=== PATIENT | female | born 1960 | race Caucasian/White ===

== ENCOUNTER 2018-11-05 18:54 | Inpatient (IN) | payer BC ==
--- NOTE | 2018-11-05 19:53 | EDPHYS ---
Physician Documentation [facility] Name: Lesley Vogel Age: 58 yrs Sex: Female : 1960 Arrival Date: 11/05/2018 Time: 18:58 Bed 23 Private MD: ED Physician Navid Jean HPI: 11/05 19:49 This 58 yrs old Female presents to ER via Ambulatory with complaints of Chest chad Pressure, Dizziness, Blood Pressure Problem. 19:49 The patient or guardian reports chest pain that is located primarily in the substernal chad area. Onset: 2 day(s) ago. The pain radiates to the left shoulder. Associated signs and symptoms: The patient has no apparent associated signs or symptoms. The chest pain is described as a pressure. Modifying factors: The symptoms are alleviated by nothing. the symptoms are aggravated by nothing. Severity of pain: At its worst the pain was. The patient has not experienced similar symptoms in the past. Historical: - Allergies: 19:38 PENICILLINS; fc 19:38 Erythromycin; fc - Home Meds: 19:38 None [Active]; fc - PMHx: 19:38 Stomach issues with diarrhea; fc - PSHx: 19:38 Cholecystectomy; Hysterectomy; Tonsillectomy; Breast biopsy; fc - Immunization history:: Last tetanus immunization: < 10 years ago. - Social history:: Smoking status: Patient/guardian denies using tobacco, Patient/guardian denies using alcohol, street drugs. - Ebola Screening: : Patient negative for fever greater than or equal to 101.5 degrees Fahrenheit, and additional compatible Ebola Virus Disease symptoms Patient denies exposure to infectious person Patient denies travel to an Ebola-affected area in the 21 days before illness onset. - Family history:: not pertinent. ROS: 19:49 Constitutional: Negative for fever, chills, and weight loss, Eyes: Negative for injury, chad pain, redness, and discharge, ENT: Negative for injury, pain, and discharge, Neck: Negative for injury, pain, and swelling, Respiratory: Negative for shortness of breath, cough, wheezing, and pleuritic chest pain, Abdomen/GI: Negative for abdominal pain, nausea, vomiting, diarrhea, and constipation, Back: Negative for injury and pain, : Negative for injury, bleeding, discharge, and swelling, MS/Extremity: Negative for injury and deformity, Skin: Negative for injury, rash, and discoloration, Psych: Negative for depression, anxiety, suicide ideation, homicidal ideation, and hallucinations, Allergy/Immunology: Negative for hives, rash, and allergies, Endocrine: Negative for neck swelling, polydipsia, polyuria, polyphagia, and marked weight changes, Hematologic/Lymphatic: Negative for swollen nodes, abnormal bleeding, and unusual bruising. 19:49 Cardiovascular: Positive for chest pain, of the chest. 19:49 Neuro: Positive for dizziness. Exam: 19:49 Constitutional: This is a well developed, well nourished patient who is awake, alert, chad and in no acute distress. Head/Face: Normocephalic, atraumatic. Eyes: Pupils equal round and reactive to light, extra-ocular motions intact. Lids and lashes normal. Conjunctiva and sclera are non-icteric and not injected. Cornea within normal limits. Periorbital areas with no swelling, redness, or edema. ENT: Nares patent. No nasal discharge, no septal abnormalities noted. Tympanic membranes are normal and external auditory canals are clear. Oropharynx with no redness, swelling, or masses, exudates, or evidence of obstruction, uvula midline. Mucous membranes moist. Neck: Trachea midline, no thyromegaly or masses palpated, and no cervical lymphadenopathy. Supple, full range of motion without nuchal rigidity, or vertebral point tenderness. No Meningismus. Chest/axilla: Normal chest wall appearance and motion. Nontender with no deformity. No lesions are appreciated. Cardiovascular: Regular rate and rhythm with a normal S1 and S2. No gallops, murmurs, or rubs. Normal PMI, no JVD. No pulse deficits. Respiratory: Lungs have equal breath sounds bilaterally, clear to auscultation and percussion. No rales, rhonchi or wheezes noted. No increased work of breathing, no retractions or nasal flaring. Abdomen/GI: Soft, non-tender, with normal bowel sounds. No distension or tympany. No guarding or rebound. No evidence of tenderness throughout. Back: No spinal tenderness. No costovertebral tenderness. Full range of motion. Skin: Warm, dry with normal turgor. Normal color with no rashes, no lesions, and no evidence of cellulitis. MS/ Extremity: Pulses equal, no cyanosis. Neurovascular intact. Full, normal range of motion. Neuro: Awake and alert, GCS 15, oriented to person, place, time, and situation. Cranial nerves II-XII grossly intact. Motor strength 5/5 in all extremities. Sensory grossly intact. Cerebellar exam normal. Normal gait. Psych: Awake, alert, with orientation to person, place and time. Behavior, mood, and affect are within normal limits. 19:49 Musculoskeletal/extremity: Extremities: all appear grossly normal, with no appreciated pain with palpation, ROM: no acute changes, Circulation is intact in all extremities. Sensation intact. Compartment Syndrome exam of affected extremity: is normal. DVT Exam: No signs of deep vein thrombosis. no pain, no swelling, no tenderness, negative Homans' sign noted on exam, no appreciated bluish discoloration, no erythema, no increased warmth. Vital Signs: 19:15 BP 107 / 65; Pulse 83; Resp 18; Temp 98.1(O); Pulse Ox 100% on R/A; Weight 63.5 kg (R); fc Height 5 ft. 5 in. (165.10 cm) (R); Pain 3/10; 19:30 BP 110 / 65; Pulse 67; Resp 18 S; Pulse Ox 100% on R/A; ca1 20:00 BP 108 / 71; Pulse 84; Resp 19 S; Pulse Ox 100% on R/A; ca1 20:26 BP 113 / 74; Pulse 71; Resp 19 S; Pulse Ox 100% on R/A; ca1 21:20 BP 126 / 83; Pulse 74; Resp 17 S; Pulse Ox 100% on R/A; ca1 22:32 BP 112 / 67; Pulse 63; Resp 17 S; Pulse Ox 100% on R/A; ca1 23:30 BP 111 / 64; Pulse 75; Resp 19; Pulse Ox 100% on R/A; ca1 19:15 Body Mass Index 23.30 (63.50 kg, 165.10 cm) MDM: 19:24 Patient medically screened. [facility] 19:51 Data reviewed: vital signs, nurses notes, lab test result(s), EKG, radiologic studies, chad plain films. 11/05 19:49 Order name: Basic Metabolic Panel; Complete Time: 20:51 [facility] 11/05 19:49 Order name: CBC with Diff; Complete Time: 20:51 [facility] 11/05 19:49 Order name: LFT's; Complete Time: 20:51 [facility] 11/05 19:49 Order name: Magnesium; Complete Time: 20:51 11/05 19:49 Order name: NT PRO-BNP; Complete Time: 20:51 11/05 19:49 Order name: PT-INR; Complete Time: 20:51 11/05 19:49 Order name: Troponin (emerg Dept Use Only); Complete Time: 20:51 [facility] 11/05 19:49 Order name: Lipase; Complete Time: 20:51 [facility] 11/05 20:55 Order name: Lipid Profile; Complete Time: 21:47 [facility] 11/05 21:21 Order name: Urine Dipstick--Ancillary (enter results); Complete Time: 22:26 ar5 11/05 22:28 Order name: Urine Culture [facility] 11/05 22:42 Order name: Comprehensive Metabolic Panel [facility] 11/05 22:43 Order name: CBC with Automated Diff [facility] 11/05 22:43 Order name: CBC with Automated Diff [facility] 11/05 19:49 Order name: XRAY Chest (1 view); Complete Time: 20:51 [facility] 11/05 20:52 Order name: CT Abd/Pelvis - W/Contrast [facility] 11/05 22:29 Order name: US Abdomen Limited [facility] 11/05 22:43 Order name: Comprehensive Metabolic Panel [facility] 11/05 22:43 Order name: Lipase [facility] 11/05 22:43 Order name: Lipase [facility] 11/05 22:43 Order name: Lipid Profile [facility] 11/05 22:43 Order name: Lipid Profile [facility] 11/05 19:49 Order name: EKG; Complete Time: 19:49 [facility] 11/05 19:49 Order name: Cardiac monitoring; Complete Time: 19:50 chad 11/05 19:49 Order name: EKG - Nurse/Tech; Complete Time: 19:50 11/05 19:49 Order name: IV Saline Lock; Complete Time: 20:26 11/05 19:49 Order name: Labs collected and sent; Complete Time: 20:26 11/05 19:49 Order name: O2 Per Protocol; Complete Time: 19:51 11/05 19:49 Order name: O2 Sat Monitoring; Complete Time: 19:51 11/05 19:49 Order name: Urine Dipstick-Ancillary (obtain specimen); Complete Time: 20:22 chad 11/05 22:43 Order name: CONS Pharmacy Consult [facility] 11/05 22:43 Order name: VICENTE EDSD Administered Medications: 20:00 Drug: NS 0.9% 1000 ml Route: IV; Rate: 125 ml/hr; Site: left antecubital; ca1 20:16 Follow up: IV Status: Infusion continued upon admission ca1 23:33 Follow up: IV Status: Infusion continued upon admission ca1 20:00 Drug: Aspirin 162 mg Route: PO; ca1 23:14 Follow up: Response: No adverse reaction ca1 20:02 Drug: Lovenox 1 mg/kg Route: Sub-Q; Site: right lower abdomen; ca1 23:33 Follow up: Response: No adverse reaction ca1 20:02 Drug: Pepcid 20 mg Route: IVP; Site: left antecubital; ca1 23:15 Follow up: Response: No adverse reaction ca1 20:54 Drug: NS 0.9% 1000 ml Route: IV; Rate: 1 bolus; Site: left antecubital; ca1 23:32 Follow up: IV Status: Infusion continued upon admission ca1 23:55 Follow up: IV Status: Completed infusion ca1 21:15 Drug: NS 0.9% 1000 ml Route: IV; Rate: 1 bolus; Site: left antecubital; ca1 23:32 Follow up: IV Status: Infusion continued upon admission ca1 23:54 Follow up: IV Status: Completed infusion ca1 22:40 Drug: levofloxacin 500 mg Volume: 100 ml; Route: IVPB; Infused Over: 60 mins; Site: ca1 left antecubital; 23:32 Follow up: IV Status: Infusion continued upon admission ca1 23:53 Follow up: Response: No adverse reaction; IV Status: Completed infusion ca1 23:00 Drug: Lopressor 25 mg Route: PO; ca1 23:33 Follow up: Response: No adverse reaction ca1 Disposition: 11/05/18 19:52 Hospitalization ordered by Ignacio Curtis for Observation. Preliminary diagnosis are Chest pain, unspecified, Dizziness and giddiness, Functional dyspepsia - hx cholecystectomy, elevated lipase, Urinary tract infection, site not specified. - Bed requested for Telemetry/MedSurg (observation). - Status is Observation. ca1 - Condition is Stable. - Problem is new. - Symptoms have improved. UTI on Admission? Yes Signatures: Dispatcher [employer] EDMS Teresa Nguyen RN RN mw Anderson, Corey, MD MD cha Chretien, Felicia, RN RN Alina Giles RN RN ca1 Corrections: (The following items were deleted from the chart) 19:52 19:51 Data reviewed: vital signs, nurses notes, lab test result(s), EKG, radiologic [facility] studies, CT scan, plain films, [facility] 20: 19:52 Hospitalization Ordered by Ignacio Curtis MD for Observation. Preliminary diagnosis is Chest pain, unspecified; Dizziness and giddiness. Bed requested for Telemetry/MedSurg (observation). Status is Observation. Condition is Stable. Problem is new. Symptoms have improved. UTI on Admission? No. chad 20:55 20:27 11/05/2018 19:52 Hospitalization Ordered by Ignacio Curtis MD for Observation. chad Preliminary diagnosis is Chest pain, unspecified; Dizziness and giddiness. Bed requested for Telemetry/MedSurg (observation). Status is Observation. Condition is Stable. Problem is new. Symptoms have improved. UTI on Admission? No. 22:34 20:55 11/05/2018 19:52 Hospitalization Ordered by Ignacio Curtis MD for Observation. chad Preliminary diagnosis is Chest pain, unspecified; Dizziness and giddiness; Functional dyspepsia - hx cholecystectomy, elevated lipase. Bed requested for Telemetry/MedSurg (observation). Status is Observation. Condition is Stable. Problem is new. Symptoms have improved. UTI on Admission? No. chad 23:55 22:34 11/05/2018 19:52 Hospitalization Ordered by Ignacio Curtis MD for Observation. ca1 Preliminary diagnosis is Chest pain, unspecified; Dizziness and giddiness; Functional dyspepsia - hx cholecystectomy, elevated lipase; Urinary tract infection, site not specified. Bed requested for Telemetry/MedSurg (observation). Status is Observation. Condition is Stable. Problem is new. Symptoms have improved. UTI on Admission? Yes. chad
--- NOTE | 2018-11-05 19:53 | ER ---
Nurse's Notes [facility] Name: Lesley Vogel Age: 58 yrs Sex: Female : 1960 Arrival Date: 11/05/2018 Time: 18:58 Bed 23 Private MD: Diagnosis: Chest pain, unspecified;Dizziness and giddiness;Functional dyspepsia-hx cholecystectomy, elevated lipase;Urinary tract infection, site not specified Presentation: 11/05 19:15 Presenting complaint: Patient states: that for the past 2 days she has had episodes of fc dizziness and nausea but no vomiting. Today she had 2 episodes but she also had chest pressure with the dizziness. States that all the episodes were after exercise or walking. Transition of care: patient was not received from another setting of care. Onset of symptoms was November 03, 2018. Risk Assessment: Do you want to hurt yourself or someone else? Patient reports no desire to harm self or others. Initial Sepsis Screen: Does the patient meet any 2 criteria? No. Patient's initial sepsis screen is negative. Does the patient have a suspected source of infection? No. Patient's initial sepsis screen is negative. Care prior to arrival: None. 19:15 Method Of Arrival: Ambulatory 19:15 Acuity: ERROL 3 fc Historical: - Allergies: 19:38 PENICILLINS; fc 19:38 Erythromycin; fc - Home Meds: 19:38 None [Active]; fc - PMHx: 19:38 Stomach issues with diarrhea; fc - PSHx: 19:38 Cholecystectomy; Hysterectomy; Tonsillectomy; Breast biopsy; fc - Immunization history:: Last tetanus immunization: < 10 years ago. - Social history:: Smoking status: Patient/guardian denies using tobacco, Patient/guardian denies using alcohol, street drugs. - Ebola Screening: : Patient negative for fever greater than or equal to 101.5 degrees Fahrenheit, and additional compatible Ebola Virus Disease symptoms Patient denies exposure to infectious person Patient denies travel to an Ebola-affected area in the 21 days before illness onset. - Family history:: not pertinent. Screenin:15 Abuse screen: Denies threats or abuse. Nutritional screening: No deficits noted. fc Tuberculosis screening: No symptoms or risk factors identified. Fall Risk None identified. Assessment: 19:35 General: Appears in no apparent distress. comfortable, Behavior is calm, cooperative, ca1 appropriate for age, Reports dizzy spells for about a week now. Chest tightness started at about 1600. Pain: Complains of pain in anterior aspect of left upper chest Pain radiates to left clavicle Pain currently is 3 out of 10 on a pain scale. at worst was 6 out of 10 on a pain scale. Quality of pain is described as pressure, Pain began 4 hours ago. Is continuous. Neuro: Level of Consciousness is awake, alert, obeys commands, Oriented to person, place, time, situation. Neuro: Reports dizziness, since a week ago. Cardiovascular: Heart tones S1 S2 present Capillary refill < 3 seconds Patient's skin is warm and dry. Respiratory: Airway is patent Respiratory effort is even, unlabored, Respiratory pattern is regular, symmetrical, Breath sounds are clear bilaterally. GI: Abdomen is flat, non-distended, Bowel sounds present X 4 quads. Abd is soft and non tender X 4 quads. Reports nausea. : No deficits noted. No signs and/or symptoms were reported regarding the genitourinary system. EENT: No deficits noted. No signs and/or symptoms were reported regarding the EENT system. Derm: Skin is intact, is healthy with good turgor, Skin is pink, warm \T\ dry. Musculoskeletal: Circulation, motion, and sensation intact. Capillary refill < 3 seconds. 20:30 Reassessment: Patient appears in no apparent distress at this time. Patient and/or ca1 family updated on plan of care and expected duration. Pain level reassessed. Patient is alert, oriented x 3, equal unlabored respirations, skin warm/dry/pink. 21:20 Reassessment: Patient appears in no apparent distress at this time. Patient and/or ca1 family updated on plan of care and expected duration. Pain level reassessed. Patient is alert, oriented x 3, equal unlabored respirations, skin warm/dry/pink. 22:29 Reassessment: Patient appears in no apparent distress at this time. Patient and/or ca1 family updated on plan of care and expected duration. Pain level reassessed. Patient is alert, oriented x 3, equal unlabored respirations, skin warm/dry/pink. Awaiting admitting orders. 23:30 Reassessment: Patient appears in no apparent distress at this time. Patient is alert, ca1 oriented x 3, equal unlabored respirations, skin warm/dry/pink. Instructed on NPO. Vital Signs: 19:15 BP 107 / 65; Pulse 83; Resp 18; Temp 98.1(O); Pulse Ox 100% on R/A; Weight 63.5 kg (R); fc Height 5 ft. 5 in. (165.10 cm) (R); Pain 3/10; 19:30 BP 110 / 65; Pulse 67; Resp 18 S; Pulse Ox 100% on R/A; ca1 20:00 BP 108 / 71; Pulse 84; Resp 19 S; Pulse Ox 100% on R/A; ca1 20:26 BP 113 / 74; Pulse 71; Resp 19 S; Pulse Ox 100% on R/A; ca1 21:20 BP 126 / 83; Pulse 74; Resp 17 S; Pulse Ox 100% on R/A; ca1 22:32 BP 112 / 67; Pulse 63; Resp 17 S; Pulse Ox 100% on R/A; ca1 23:30 BP 111 / 64; Pulse 75; Resp 19; Pulse Ox 100% on R/A; ca1 19:15 Body Mass Index 23.30 (63.50 kg, 165.10 cm) fc ED Course: 18:58 Patient arrived in ED. mr 19:15 Arm band placed on Patient placed in an exam room, on a stretcher. fc 19:15 Patient has correct armband on for positive identification. Placed in gown. Bed in low fc position. Call light in reach. site monitor on. Pulse ox on. NIBP on. 19:24 Navid Jean MD is Attending Physician. [facility] 19:25 Alina Giles RN is Primary Nurse. ca1 19:35 Patient maintains SpO2 saturation greater than 95% on room air. ca1 19:36 Triage completed. fc 19:52 Ignacio Curtis MD is Hospitalizing Provider. [facility] 19:58 Inserted saline lock: 20 gauge in left antecubital area, using aseptic technique. Blood ca1 collected. 20:21 XRAY Chest (1 view) In Process Unspecified. EDMS 20:24 No provider procedures requiring assistance completed. Patient admitted, IV remains in ca1 place. 21:[address] via wheelchair. nj 21:51 CT completed. Patient tolerated procedure well. Patient moved back from CT. nj 22:03 CT Abd/Pelvis - W/Contrast In Process Unspecified. EDMS Administered Medications: 20:00 Drug: NS 0.9% 1000 ml Route: IV; Rate: 125 ml/hr; Site: left antecubital; ca1 20:16 Follow up: IV Status: Infusion continued upon admission ca1 23:33 Follow up: IV Status: Infusion continued upon admission ca1 20:00 Drug: Aspirin 162 mg Route: PO; ca1 23:14 Follow up: Response: No adverse reaction ca1 20:02 Drug: Lovenox 1 mg/kg Route: Sub-Q; Site: right lower abdomen; ca1 23:33 Follow up: Response: No adverse reaction ca1 20:02 Drug: Pepcid 20 mg Route: IVP; Site: left antecubital; ca1 23:15 Follow up: Response: No adverse reaction ca1 20:54 Drug: NS 0.9% 1000 ml Route: IV; Rate: 1 bolus; Site: left antecubital; ca1 23:32 Follow up: IV Status: Infusion continued upon admission ca1 23:55 Follow up: IV Status: Completed infusion ca1 21:15 Drug: NS 0.9% 1000 ml Route: IV; Rate: 1 bolus; Site: left antecubital; ca1 23:32 Follow up: IV Status: Infusion continued upon admission ca1 23:54 Follow up: IV Status: Completed infusion ca1 22:40 Drug: levofloxacin 500 mg Volume: 100 ml; Route: IVPB; Infused Over: 60 mins; Site: ca1 left antecubital; 23:32 Follow up: IV Status: Infusion continued upon admission ca1 23:53 Follow up: Response: No adverse reaction; IV Status: Completed infusion ca1 23:00 Drug: Lopressor 25 mg Route: PO; ca1 23:33 Follow up: Response: No adverse reaction ca1 Outcome: 19:52 Decision to Hospitalize by Provider. chad 23:29 Admitted to Med/surg accompanied by tech, family with patient, via wheelchair, room ca1 214, with chart, Other with IVF Report called to Teresita Roberts RN 23:29 Condition: stable 23:29 Instructed on the need for admit. 23:55 Patient left the ED. ca1 Signatures: Dispatcher [employer] EDMS Navid Jean MD MD cha Rivera, Johanna Peck RN RN fc Jordan, Nathan nj Acob, Cheryl, RN RN ca1 Corrections: (The following items were deleted from the chart) 23:31 23:30 Reassessment: Patient appears in no apparent distress at this time. Patient is ca1 alert, oriented x 3, equal unlabored respirations, skin warm/dry/pink. ca1
[2018-11-05 20:13] LABS: Protime INR 1.05
[2018-11-05 20:17] LABS: Absolute Lymphocytes (CBC) 2.8 K/uL (0.7-4.9); Absolute Monocytes 0.9 K/uL (0.1-1.3); Absolute Neutrophil 7.9 K/uL (1.8-8.0); Basophils % 0.4 % (0-1.3); Eosinophils % 1.1 % (0-4.4); Hematocrit 36.3 % (36.0-45.0); Lymphocytes % 23.8 % (15.3-44.8); MPV 8.4 fL (7.6-11.3); Monocytes % 7.7 % (3.3-12.3); RBC Red Blood Cell Count 4.01 M/uL (3.86-4.86)
[2018-11-05] MEDS ORDERED: ASPIRIN EC 81 MG TAB PO ONE (20:18)
[2018-11-05] MEDS ORDERED: NA CHLORIDE 0.9% 1,000 ML ONE ×3 (20:18→21:15)
[2018-11-05] MEDS ORDERED: METOPROLOL TAR 25 MG TAB ONE (20:18)
[2018-11-05] MEDS ORDERED: FAMOTIDINE 20 MG/2 ML VIAL IV ONE (20:18)
[2018-11-05] MEDS ORDERED: ENOXAPARIN 60 MG/0.6 ML SQ ONE (20:19)
[2018-11-05 20:35] LABS: ALT/SGPT 23 U/L (12-78); AST/SGOT 19 U/L (15-37); Albumin 3.8 g/dL (3.4-5.0); Alkaline Phosphatase 64 U/L (45-117); BUN Blood Urea Nitrogen 24 mg/dL (7-18); Bicarbonate 28 mmol/L (21-32); Bilirubin Direct 0.2 mg/dL (0-0.2); Bilirubin Total 0.6 mg/dL (0.2-1.0); Glucose Level 91 mg/dL (74-106); Lipase 1359 U/L (73-393); Magnesium 2.1 mg/dL (1.8-2.4); NT PRO-BNP 68 pg/mL (<125); Protein, Total 6.9 g/dL (6.4-8.2); Sodium Level 143 mmol/L (136-145); Troponin (Emerg Dept Use Only) < 0.02 ng/mL (0.0-0.045)
--- NOTE | 2018-11-05 20:40 | RAD REPORT ---
EXAM DESCRIPTION: Rakesh Single View11/05/2018 8:21 pm CLINICAL HISTORY: Chest pain COMPARISON: none FINDINGS: The lungs appear clear of acute infiltrate. The heart is normal size IMPRESSION: No acute abnormalities displayed
[2018-11-05 22:12] LABS: Urine Blood TRACE (NEG); Urine Glucose NEGATIVE (NEG); Urine Protein NEGATIVE (NEG); Urine pH 5.5 (5.0-7.0)
[2018-11-05] MEDS ORDERED: ONDANSETRON 4 MG/2 ML VIAL IV PRN (22:39)
[2018-11-05] MEDS ORDERED: Levofloxacin500mg IV 500 MG/100 ML BAG IV ONE (22:47)
[2018-11-05] MEDS: NA CHLORIDE 0.9% 1,000 ML IV SCH (23:00)
[2018-11-06] MEDS: MORPHINE 2 MG/ML SYR IV PRN ×2 (00:42→16:34)
[2018-11-06 06:05] LABS: Absolute Monocytes 0.8 K/uL (0.1-1.3); Absolute Neutrophil 3.1 K/uL (1.8-8.0); Basophils % 0.6 % (0-1.3); Eosinophils % 0.9 % (0-4.4); Hematocrit 32.4 % (36.0-45.0); Lymphocytes % 33.5 % (15.3-44.8); MPV 8.7 fL (7.6-11.3); Monocytes % 13.2 % (3.3-12.3); RBC Red Blood Cell Count 3.59 M/uL (3.86-4.86)
[2018-11-06 06:42] LABS: Bilirubin Total 1.2 mg/dL (0.2-1.0); Potassium 4.3 mmol/L (3.5-5.1); Protein, Total 5.5 g/dL (6.4-8.2)
[2018-11-06] MEDS: NA CHLORIDE 0.9% 1,000 ML IV SCH ×4 (07:32→23:00)
--- NOTE | 2018-11-06 09:37 | RAD REPORT ---
EXAM DESCRIPTION: US - Abdomen Exam Limited - 11/05/2018 10:51 pm CLINICAL HISTORY: Abdominal pain. COMPARISON: November 05 2018 cat scan FINDINGS: Cholecystectomy. The biliary tree is normal caliber. The common bile duct measures 5 millimeters IMPRESSION: Cholecystectomy. Otherwise unremarkable exam
--- NOTE | 2018-11-06 10:29 | EKG ---
Test Date: 2018-11-05 Test Time: 19:41:38 [employer] Instructor: HELEN MEASUREMENT RESULTS: Intervals: Rate: 81 LA: 128 QRSD: 78 QT: 364 QTc: 422 [place]: P: 80 LA: 128 QRS: 88 T: 60 INTERPRETIVE STATEMENTS: Normal sinus rhythm with sinus arrhythmia Normal ECG Compared to ECG 10/31/2003 12:30:00 Right-axis deviation no longer present Electronically Signed On 11-06-18 10:28:13 CDT by Betito Kraus
--- NOTE | 2018-11-06 12:19 | P.PN ---
Subjective Date of Service: 11/06/18 Subjective: No C/O voiced, Improving Patient seen and examined at bedside. No family at bedside. Chart reviewed and case discussed with nursing staff. Patient admitted for acute pancreatitis. Abdominal ultrasound and CT still pending. Patient reports resolved chest and abdominal pain at this time. She denies any nausea or vomiting. Review of Systems 10-point ROS is otherwise unremarkable Physical Examination - Vital Signs Temperature: 98.2 F Blood Pressure: 110/57 Pulse: 53 Respirations: 18 Pulse Ox (%): 99 - Physical Exam General: Alert, In no apparent distress, Oriented x3 HEENT: Atraumatic, PERRLA, EOMI Neck: Supple, JVD not distended Respiratory: Clear to auscultation bilaterally, Normal air movement Cardiovascular: Regular rate/rhythm, Normal S1 S2 Gastrointestinal: Normal bowel sounds, Tenderness (Right upper quadrant) Musculoskeletal: No tenderness Integumentary: No rashes Neurological: Normal speech, Normal tone, Normal affect Lymphatics: No axilla or inguinal lymphadenopathy - Studies Laboratory Data (last 24 hrs) 11/05/18 19:58: Triglycerides 135, Cholesterol 196, HDL Cholesterol 69 H, Cholesterol/HDL Ratio 2.84 11/05/18 19:58: PT 12.4, INR 1.05 11/05/18 19:58: WBC 11.8 H, Hgb 12.3, Hct 36.3, Plt Count 230 11/05/18 19:58: Sodium 143, Potassium 4.0, BUN 24 H, Creatinine 0.95, Glucose 91 , Magnesium 2.1, Total Bilirubin 0.6, AST 19, ALT 23, Alkaline Phosphatase 64, Lipase 1359 H Assessment And Plan - Current Problems (Diagnosis) (1) Acute pancreatitis Current Visit: Yes Status: Acute Plan: - Continue to keep NPO - pain control - IV fluids - follow up abdominal CT - abdominal ultrasound without common bile duct dilatation Qualifiers: Acute pancreatitis complication: unspecified (2) Elevated LFTs Current Visit: Yes Status: Acute Plan: Abdominal ultrasound without common bile duct dilatation. We will continue to monitor If continues to remain elevated, will need transfer to [place] for MRCP (3) History of cholecystectomy Current Visit: Yes Status: Acute (4) Leukocytosis Current Visit: Yes Status: Acute Qualifiers: Leukocytosis type: unspecified Qualified Code(s): D72.829 - Elevated white blood cell count, unspecified - Plan Continue to monitor on the floor. Follow up on abdominal CT. May need transfer to [place] if no improvement in LFTs for MRCP.
--- NOTE | 2018-11-06 13:55 | P.HP ---
Certification for Inpatient Patient admitted to: Inpatient With expected LOS: >2 Midnights Patient will require the following post-hospital care: None Practitioner: I am a practitioner with admitting privileges, knowledge of patient current condition, hospital course, and medical plan of care. Services: Services provided to patient in accordance with Admission requirements found in Title 42 Section 412.3 of the Code of Federal Regulations Patient History Date of Service: 11/05/18 Reason for admission: Acute pancreatitis History of Present Illness: Patient is a 58-year-old female who came into the hospital because she was having abdominal pain. This was mainly in the right upper quadrant, and it radiated to the left side. She has had a cholecystectomy in the past but did well after the procedure. She never had any interventions such as an ERCP prior to the procedure, because it was 17 years ago. She has had a colonoscopy in the past which did not reveal any abnormalities. In the emergency room her lipase came back elevated. She has been seeing her primary care provider Dr. Manjeet Morales a couple weeks ago because of persistent diarrhea. They tried to change her diet to see if this would help. She has also had a 45 lb weight loss just from changing her diet. She will be admitted to the hospital for further evaluation. CT of the abdomen and pelvis did not reveal any significant abnormality. She has also had an abdominal ultrasound which was negative. Allergies erythromycin base Allergy (Verified 11/06/18 00:08) Hives/Rash Penicillins Allergy (Verified 11/06/18 00:08) Hives/Rash Home Medications: NK [No Home Meds] 11/06/18 - Past Medical/Surgical History Has patient received pneumonia vaccine in the past: No Diabetic: No Past Medical History: Patient denies medical history -: hysterectomy -: tonsillectomy -: breast biopsy -: Laparoscopic cholecystectomy - Family History Father Medical History: Heart disease, Other (see notes) Notes: pacemaker/ defib - Social History Smoking Status: Never smoker Alcohol use: No CD- Drugs: No Caffeine use: Yes Place of Residence: Home Review of Systems 10-point ROS is otherwise unremarkable Physical Examination - Vital Signs Temperature: 98.2 F Blood Pressure: 110/57 Pulse: 53 Respirations: 18 Pulse Ox (%): 99 - Physical Exam General: Alert, In no apparent distress, Oriented x3 HEENT: Atraumatic, PERRLA, Mucous membr. moist/pink, EOMI, Sclerae nonicteric Neck: Supple, 2+ carotid pulse no bruit, No LAD, Without JVD or thyroid abnormality Respiratory: Clear to auscultation bilaterally, Normal air movement Cardiovascular: Regular rate/rhythm, Normal S1 S2, No murmurs Gastrointestinal: Normal bowel sounds, Soft and benign, Non-distended, Tenderness (right upper quadrant) Musculoskeletal: No clubbing, No swelling, No tenderness Integumentary: No rashes Neurological: Normal gait, Normal speech, Normal strength at 5/5 x4 extr, Normal tone, Sensation intact, Cranial nerves 3-12 intact, Normal affect Lymphatics: No axilla or inguinal lymphadenopathy - Studies Laboratory Data (last 24 hrs) 11/05/18 19:58: Triglycerides 135, Cholesterol 196, HDL Cholesterol 69 H, Cholesterol/HDL Ratio 2.84 11/05/18 19:58: PT 12.4, INR 1.05 11/05/18 19:58: WBC 11.8 H, Hgb 12.3, Hct 36.3, Plt Count 230 11/05/18 19:58: Sodium 143, Potassium 4.0, BUN 24 H, Creatinine 0.95, Glucose 91 , Magnesium 2.1, Total Bilirubin 0.6, AST 19, ALT 23, Alkaline Phosphatase 64, Lipase 1359 H Assessment & Plan - Problems (Diagnosis) (1) Diarrhea Current Visit: Yes Status: Acute (2) Weight loss Current Visit: Yes Status: Acute (3) Acute pancreatitis Current Visit: Yes Status: Acute Qualifiers: Acute pancreatitis complication: unspecified (4) Elevated LFTs Current Visit: Yes Status: Acute (5) History of cholecystectomy Current Visit: Yes Status: Acute (6) Leukocytosis Current Visit: Yes Status: Acute Qualifiers: Leukocytosis type: unspecified Qualified Code(s): D72.829 - Elevated white blood cell count, unspecified - Plan Plan: 1. IV fluids and IV antibiotics 2. Stool studies 3. GI consultation outpt 4. Pain control 5. Outpatient colonoscopy 6. MRCP 7. GI and DVT prophylaxis Discharge Plan: Home Plan to discharge in: Greater than 2 days - Advance Directives Does patient have a Living Will: Yes Does patient have a Durable POA for Healthcare: Yes - Code Status/Comfort Care Code Status Assessed: Yes Code Status: Full Code Critical Care: No Time Spent Managing PTS Care (In Minutes): 45
[2018-11-06] MEDS: ACETAMINOPHEN 500 MG TAB PO PRN (21:53)
[2018-11-07 05:03] LABS: Absolute Lymphocytes (CBC) 1.6 K/uL (0.7-4.9); Absolute Monocytes 0.5 K/uL (0.1-1.3); Absolute Neutrophil 4.9 K/uL (1.8-8.0); Basophils % 0.6 % (0-1.3); Eosinophils % 0.5 % (0-4.4); Hematocrit 34.7 % (36.0-45.0); Lymphocytes % 23.1 % (15.3-44.8); MPV 8.7 fL (7.6-11.3); Monocytes % 6.8 % (3.3-12.3); RBC Red Blood Cell Count 3.86 M/uL (3.86-4.86)
[2018-11-07 05:24] LABS: AST/SGOT 291 U/L (15-37); Albumin 3.1 g/dL (3.4-5.0); Alkaline Phosphatase 131 U/L (45-117); Amylase Level 75 U/L (25-115); BUN Blood Urea Nitrogen 17 mg/dL (7-18); Bicarbonate 21 mmol/L (21-32); Bilirubin Direct 0.3 mg/dL (0-0.2); Glucose Level 62 mg/dL (74-106); Lipase 285 U/L (73-393); Potassium 4.6 mmol/L (3.5-5.1); Protein, Total 5.6 g/dL (6.4-8.2); Sodium Level 143 mmol/L (136-145)
[2018-11-07 05:26] LABS: ALT/SGPT 429 U/L (12-78)
[2018-11-07] MEDS: NA CHLORIDE 0.9% 1,000 ML IV SCH (06:00)
[2018-11-07] MEDS ORDERED: D50W 25 GM/50 ML SYRINGE IV PRN (08:51)
[2018-11-07] MEDS: ACETAMINOPHEN 500 MG TAB PO PRN (11:56)
[2018-11-07] MEDS ORDERED: D5 0.45 NS 1,000 ML IV SCH (12:00)
--- NOTE | 2018-11-07 14:13 | P.DS ---
Admission Date: 11/05/18 Discharge Date: 11/07/18 Disposition: TRANSFER TO [facility] Reason for Admission: Acute pancreatitis - Problems (1) Acute pancreatitis Current Visit: Yes Status: Acute Qualifiers: Acute pancreatitis complication: unspecified (2) Elevated LFTs Current Visit: Yes Status: Acute (3) History of cholecystectomy Current Visit: Yes Status: Acute (4) Leukocytosis Current Visit: Yes Status: Acute Qualifiers: Leukocytosis type: unspecified Qualified Code(s): D72.829 - Elevated white blood cell count, unspecified Brief History of Present Illness: Patient is a 58-year-old female who came into the hospital because she was having abdominal pain. This was mainly in the right upper quadrant, and it radiated to the left side. She has had a cholecystectomy in the past but did well after the procedure. She never had any interventions such as an ERCP prior to the procedure, because it was 17 years ago. She has had a colonoscopy in the past which did not reveal any abnormalities. In the emergency room her lipase came back elevated. She has been seeing her primary care provider Dr. Manjeet Morales a couple weeks ago because of persistent diarrhea. They tried to change her diet to see if this would help. She has also had a 45 lb weight loss just from changing her diet. She will be admitted to the hospital for further evaluation. CT of the abdomen and pelvis did not reveal any significant abnormality. She has also had an abdominal ultrasound which was negative. Hospital Course: The patient was admitted for abdominal pain, found to have acute pancreatitis with elevated lipase. She was kept NPO her pain was controlled and she is start IV fluids. Her abdominal ultrasound did not show any common bile duct dilute patient. Her LFTs are normal on admission, jumped up to 700 over for 26 and continued to stay elevated. Her alk phos and bilirubin also went up. She continued to have pain clinically. She did remain he must dynamically stable. Due to not having any gastroenterology service today and unable to do an MRCP today, patient was transferred to [facility]. Vital Signs/Physical Exam: Temp Pulse Resp BP Pulse Ox 97.7 F 70 18 89/54 L 100 11/07/18 08:00 11/07/18 08:00 11/07/18 08:00 11/07/18 08:00 11/07/18 08:00 General: Alert, In no apparent distress, Oriented x3 Respiratory: Clear to auscultation bilaterally, Normal air movement Cardiovascular: Regular rate/rhythm, Normal S1 S2 Gastrointestinal: Normal bowel sounds, Tenderness (Right upper quad) Laboratory Data at Discharge: WBC 7.1 K/uL (4.3-10.9) D 11/07/18 04:26 Hgb 11.8 g/dL (12.0-15.0) L 11/07/18 04:26 Hct 34.7 % (36.0-45.0) L 11/07/18 04:26 Plt Count 205 K/uL (152-406) 11/07/18 04:26 PT 12.4 SECONDS (9.5-12.5) 11/05/18 19:58 INR 1.05 11/05/18 19:58 Sodium 143 mmol/L (136-145) 11/07/18 04:26 Potassium 4.6 mmol/L (3.5-5.1) 11/07/18 04:26 BUN 17 mg/dL (7-18) 11/07/18 04:26 Creatinine 0.59 mg/dL (0.55-1.3) 11/07/18 04:26 Glucose 62 mg/dL (74-106) L 11/07/18 04:26 Magnesium 2.1 mg/dL (1.8-2.4) 11/05/18 19:58 Total Bilirubin 1.0 mg/dL (0.2-1.0) 11/07/18 04:26 AST 291 U/L (15-37) H D 11/07/18 04:26 ALT 429 U/L (12-78) H* 11/07/18 04:26 Alkaline Phosphatase 131 U/L (45-117) H 11/07/18 04:26 Triglycerides 65 mg/dL (<150) 11/06/18 05:37 Cholesterol 151 mg/dL (<200) 11/06/18 05:37 HDL Cholesterol 59 mg/dL (40-60) 11/06/18 05:37 Cholesterol/HDL Ratio 2.56 11/06/18 05:37 Amylase 75 U/L (25-115) 11/07/18 04:26 Lipase 285 U/L (73-393) 11/07/18 04:26 Home Medications: NK [No Home Meds] 11/06/18 Patient Discharge Instructions: Transferred to [facility] for GI evaluation and MRCP. Time spent managing pt's care (in minutes): 45
--- NOTE | 2018-11-08 11:18 | RAD REPORT ---
EXAM DESCRIPTION: CT - Abdomen Pelvis W Contrast - 11/05/2018 10:23 pm CLINICAL HISTORY: The patient is 58 years old and is Female; ABD PAIN TECHNIQUE: Axial computed tomography images of the abdomen and pelvis with intravenous contrast. S agittal and coronal reformatted images were created and reviewed. This CT exam was performed using one or more of the following dose reduction techniques: automated exposure control, adjustment of t he mA and/or kV according to patient size, and/or use of iterative reconstruction technique. COMPARISON: No relevant prior studies available. FINDINGS: LUNG BASES: Unremarkable. No mass. No consolidation. ABDOMEN: LIVER: Unremarkable. No mass. GALLBLADDER AND BILE DUCTS: Surgical clips are present in the right upper quadrant, consistent w ith previous cholecystectomy. Mild biliary dilatation is present. PANCREAS: No ductal dilation. No mass. SPLEEN: Unremarkable. ADRENALS: Unremarkable. No mass. KIDNEYS AND URETERS: Unremarkable. No solid mass. No hydronephrosis. STOMACH AND BOWEL: The stomach is distended with oral contrast. Oral contrast is present through out majority the small bowel. There are a few loops of proximal small bowel demonstrate minimal mucos al thickening. A moderate amount of stool is present throughout the colon. There is no evidence of dominga wel obstruction. PELVIS: APPENDIX: The appendix is normal in caliber without surrounding inflammation. BLADDER: Unremarkable. No mass. REPRODUCTIVE: The patient is status post hysterectomy. ABDOMEN and PELVIS: INTRAPERITONEAL SPACE: Unremarkable. No free air. No significant fluid collection. BONES/JOINTS: No acute fracture. SOFT TISSUES: The soft tissues are normal. VASCULATURE: Unremarkable. No abdominal aortic aneurysm. LYMPH NODES: Unremarkable. No enlarged lymph nodes. IMPRESSION: 1. Few proximal small bowel loops demonstrate nonspecific mucosal thickening which may be secondary to mild focal enteritis. There is no bowel obstruction. 2. Normal appendix. Moderate stool burden. 3. Mild biliary dilatation. This may be related to postcholecystectomy state. However, if clinicall y indicated, ultrasound and/or MRCP could be performed for further evaluation. Electronically signed by: Tarah Crystal MD 11/05/2018 10:15 PM CDT Due to temporary technical issues with the PACS/Fluency reporting system, reports are being signed by the in house radiologist as a courtesy to ensure prompt reporting. The interpreting radiologist is f ully responsible for the content of the report.
[2018-11-11 04:54] LABS: HBsAG Nonreactive (Nonreactive); Hepatitis A IgM Antibody Nonreactive
== END 2018-11-07 14:30 | disposition short-term general hospital (02) | DRG 440 ==
LOC: ER 18:54 → ERHOLD 22:46 → 2ND 23:31
PROVIDERS: ADMIT Hospitalist; ATTEND Family Medicine
DX: K85.90 Acute pancreatitis without necrosis or infection, unspecified (principal); R79.89 Other specified abnormal findings of blood chemistry; D72.829 Elevated white blood cell count, unspecified; Z88.0 Allergy status to penicillin; R19.7 Diarrhea, unspecified; R63.4 Abnormal weight loss; Z68.24 Body mass index [BMI] 24.0-24.9, adult; Z90.49 Acquired absence of other specified parts of digestive tract
CPT/HCPCS: 36415; 71045; 74177; 76705; 80048; 80053; 80061; 80074; 80076; 81003; 82150; 82962; 83690; 83735; 83880; 84484; 85025; 85610; 87086; 87088; 93005; 96361; 96365; 96372; 96375; 99285; J1650; J2270; J2405; J7030; Q9967